=== PATIENT | female | born 1960 | race Caucasian/White ===

== ENCOUNTER 2017-08-18 21:17 | Emergency (ER) | payer OTHER ==
[~2017-08-18] VITALS: Ht 165.1 cm; Wt 76.2 kg
[~2017-08-18 21:17] MED LIST: ALBU4; ALBU90OI6 INH; ASPI81CH PO; ATOR80 PO; Aspirin EC81 MG PO; BUPR150ER PO; CLIN300 PO; CLOP75 PO; CRUTCH3 USE; CYAN1000I; CYAN1000I IM; CYCL10 PO; DULO60 PO; ESCI20; ESTR1; FAMO20 PO; FOLI1 PO; HYDACE5 PO; HYDACE5325 PO; IBUP400 PO; IBUP800 PO; LIDO2TG30; LIDO5TO TOP; LISI5 PO; MELA3; METO25ER PO; MIRALAX17 GM PO; NITR.4SL SL; PANT40 PO; PROACE100; RXHYDACE PO; RXOXYACE PO; TICA90TA; TUMS ULTRA ST1177 MG PO
[2017-08-18 22:07] LABS: Influenza A Negative (NEGATIVE); Influenza B Negative (NEGATIVE)
[2017-08-18 22:30] LABS: BASOPHILS ABSOLUTE AUTO 0.04 K/mm3 (0.00-0.23); BASOPHILS PERCENT AUTO 1 % (0-2); EOSINOPHILS ABSOLUTE AUTO 0.08 K/mm3 (0.00-0.68); EOSINOPHILS PERCENT AUTO 1 % (0-6); Hematocrit 37.8 % (33.0-51.0); Hemoglobin 12.6 g/dL (11.5-16.0); IMMATURE GRAN ABSOLUTE AUTO 0.01 K/mm3 (0.00-0.10); IMMATURE GRAN PERCENT AUTO 0 % (0-1); LYMPHOCYTES ABSOLUTE AUTO 2.75 K/mm3 (0.84-5.20); LYMPHOCYTES PERCENT AUTO 37 % (21-46); MONOCYTES ABSOLUTE AUTO 0.44 K/mm3 (0.16-1.47); MONOCYTES PERCENT AUTO 6 % (4-13); Mean Corpuscular HGB 32.5 pg (26.0-34.0); Mean Corpuscular HGB Conc 33.3 g/dL (31.5-36.5); Mean Corpuscular Volume 97 fL (80-100); Mean Platelet Volume 11.1 fL (9.1-12.4); NEUTROPHILS ABSOLUTE AUTO 4.13 K/mm3 (1.96-9.15); NEUTROPHILS PERCENT AUTO 56 % (41-73); Platelet Count 292 K/mm3 (150-400); RDW Coefficient Variation 12.5 % (11.7-14.2); RDW Standard Deviation 44.9 fL (35.1-46.3); Red Blood Cell Count 3.88 M/mm3 (3.80-5.20); White Blood Cell Count 7.45 K/mm3 (4.00-11.30)
[2017-08-18 22:53] LABS: Alanine Aminotransfer (ALT/SGP 19 U/L (12-78); Albumin, Blood 3.1 g/dL (3.4-5.0); Albumin/Globulin Ratio 0.7 (0.8-1.8); Alk Phos 98 U/L (50-136); Anion Gap 8 mmol/L (6-16); Aspartate Aminotrans (AST/SGOT 13 U/L (12-37); Bilirubin, Total 0.3 mg/dL (0.1-1.0); Blood Urea Nitrogen 6 mg/dL (8-24); Bun/Creatinine Ratio 8.3 (12.0-20.0); CO2, Blood 23 mmol/L (21-32); Calcium, Blood 8.6 mg/dL (8.5-10.1); Chloride, Blood 112 mmol/L (98-108); Creatinine, Blood 0.73 mg/dL (0.40-1.00); Globulin, Blood 4.3 g/dL (2.2-4.0); Glomerular Filtration Rate >60 (60-); Glucose, Blood 82 mg/dL (70-99); Potassium, Blood 3.7 mmol/L (3.5-5.5); Sodium, Blood 143 mmol/L (136-145); Total Protein, Blood 7.4 g/dL (6.4-8.2); Troponin I <0.015 ng/mL (0.000-0.040)
[2017-08-18] MEDS ORDERED: Augmentin 875-1 EACH PO (23:16)
== END 2017-08-18 23:45 | disposition home or self-care (01) ==
LOC: ER 21:17
PROVIDERS: Emergency Medicine
DX: J32.9 Chronic sinusitis, unspecified (principal); J45.909 Unspecified asthma, uncomplicated; F17.210 Nicotine dependence, cigarettes, uncomplicated; Z88.1 Allergy status to other antibiotic agents; Z91.012 Allergy to eggs; Z91.018 Allergy to other foods; Z88.5 Allergy status to narcotic agent; Z79.899 Other long term (current) drug therapy; Z79.01 Long term (current) use of anticoagulants; Z95.5 Presence of coronary angioplasty implant and graft; Z90.710 Acquired absence of both cervix and uterus; Z90.49 Acquired absence of other specified parts of digestive tract
CPT/HCPCS: 36415; 71046; 80053; 84484; 85025; 87804; 93005; 93010; 99283

== ENCOUNTER 2017-10-08 07:36 | Day surgery (SDC) | payer OTHER ==
[~2017-10-08 07:36] MED LIST changes: +Augmentin 875-1 EACH PO
== END 2017-10-08 23:06 | disposition home or self-care (01) ==
LOC: ORSCMMR 07:36
PROVIDERS: Internal Medicine Gastroenterology
PROC: 0DBN8ZX Excision of Sigmoid Colon, Via Natural or Artificial Opening Endoscopic, Diagnostic (ICD-10-PCS; principal; 2017-10-08 09:00)
PROC: 0DBL8ZX Excision of Transverse Colon, Via Natural or Artificial Opening Endoscopic, Diagnostic (ICD-10-PCS; principal; 2017-10-08 09:00)
PROC: 0DBM8ZX Excision of Descending Colon, Via Natural or Artificial Opening Endoscopic, Diagnostic (ICD-10-PCS; principal; 2017-10-08 09:00)
DX: Z12.11 Encounter for screening for malignant neoplasm of colon (principal); D12.4 Benign neoplasm of descending colon; D12.3 Benign neoplasm of transverse colon; D12.5 Benign neoplasm of sigmoid colon; K57.30 Diverticulosis of large intestine without perforation or abscess without bleeding; I25.10 Atherosclerotic heart disease of native coronary artery without angina pectoris; Z86.010 Personal history of colon polyps; F17.210 Nicotine dependence, cigarettes, uncomplicated; Z79.01 Long term (current) use of anticoagulants; Z79.82 Long term (current) use of aspirin; Z79.899 Other long term (current) drug therapy
CPT/HCPCS: 88305; J7120

== ENCOUNTER 2018-08-18 13:06 | Emergency (ER) | payer OTHER ==
[~2018-08-18] VITALS: Ht 165.1 cm; Wt 68.0 kg
[2018-08-18] MEDS ORDERED: PANT40 PO (13:23)
[2018-08-18] MEDS ORDERED: DICLOFENAC SOD100 G1 TOP (14:07)
== END 2018-08-18 14:10 | disposition home or self-care (01) ==
LOC: ER 13:06
DX: M79.81 Nontraumatic hematoma of soft tissue (principal); Z88.1 Allergy status to other antibiotic agents; Z88.8 Allergy status to other drugs, medicaments and biological substances; Z88.5 Allergy status to narcotic agent; Z91.012 Allergy to eggs; Z91.018 Allergy to other foods; Z79.899 Other long term (current) drug therapy; Z79.82 Long term (current) use of aspirin; J45.909 Unspecified asthma, uncomplicated; F17.210 Nicotine dependence, cigarettes, uncomplicated
CPT/HCPCS: 73630; 99283-25

== ENCOUNTER 2019-01-25 11:19 | Emergency (ER) | payer OTHER ==
[~2019-01-25] VITALS: Ht 165.1 cm; Wt 70.3 kg
[~2019-01-25 11:19] MED LIST changes: +DICLOFENAC SOD100 G1 TOP
[2019-01-25] MEDS ORDERED: Crutch1 EACH MISC (13:21)
[2019-01-25] MEDS ORDERED: Percocet 5-3251 EACH PO (13:22)
== END 2019-01-25 13:32 | disposition home or self-care (01) ==
LOC: ER 11:19
DX: S89.91XA Unspecified injury of right lower leg, initial encounter (principal); S90.511A Abrasion, right ankle, initial encounter; X50.9XXA Other and unspecified overexertion or strenuous movements or postures, initial encounter; Z88.1 Allergy status to other antibiotic agents; Z91.012 Allergy to eggs; Z91.018 Allergy to other foods; F17.210 Nicotine dependence, cigarettes, uncomplicated
CPT/HCPCS: 29505; 73562-RT; 99283-25

== ENCOUNTER 2019-05-06 14:56 | Observation (INO) | payer OTHER ==
[~2019-05-06] VITALS: Ht 165.1 cm; Wt 76.1 kg
[~2019-05-06 14:56] MED LIST changes: +Crutch1 EACH MISC; +Percocet 5-3251 EACH PO
[2019-05-06 16:01] LABS: BASOPHILS ABSOLUTE AUTO 0.06 K/mm3 (0.00-0.23); BASOPHILS PERCENT AUTO 1 % (0-2); EOSINOPHILS ABSOLUTE AUTO 0.11 K/mm3 (0.00-0.68); EOSINOPHILS PERCENT AUTO 1 % (0-6); Hematocrit 41.7 % (33.0-51.0); Hemoglobin 14.5 g/dL (11.5-16.0); IMMATURE GRAN ABSOLUTE AUTO 0.03 K/mm3 (0.00-0.10); IMMATURE GRAN PERCENT AUTO 0 % (0-1); LYMPHOCYTES ABSOLUTE AUTO 3.53 K/mm3 (0.84-5.20); LYMPHOCYTES PERCENT AUTO 35 % (21-46); MONOCYTES ABSOLUTE AUTO 0.76 K/mm3 (0.16-1.47); MONOCYTES PERCENT AUTO 8 % (4-13); Mean Corpuscular HGB 34.1 pg (26.0-34.0); Mean Corpuscular HGB Conc 34.8 g/dL (31.5-36.5); Mean Corpuscular Volume 98 fL (80-100); Mean Platelet Volume 11.2 fL (9.1-12.4); NEUTROPHILS ABSOLUTE AUTO 5.48 K/mm3 (1.96-9.15); NEUTROPHILS PERCENT AUTO 55 % (41-73); Platelet Count 281 K/mm3 (150-400); RDW Coefficient Variation 13.1 % (11.7-14.2); RDW Standard Deviation 47.2 fL (35.1-46.3); Red Blood Cell Count 4.25 M/mm3 (3.80-5.20); White Blood Cell Count 9.97 K/mm3 (4.00-11.30)
[2019-05-06 16:25] LABS: Alanine Aminotransfer (ALT/SGP 31 U/L (12-78); Albumin, Blood 3.3 g/dL (3.4-5.0); Albumin/Globulin Ratio 0.8 (0.8-1.8); Alk Phos 97 U/L (50-136); Anion Gap 8 mmol/L (6-16); Aspartate Aminotrans (AST/SGOT 27 U/L (12-37); Bilirubin, Total 0.4 mg/dL (0.1-1.0); Blood Urea Nitrogen 10 mg/dL (8-24); Bun/Creatinine Ratio 13.1 (12.0-20.0); CO2, Blood 18 mmol/L (21-32); Calcium, Blood 9.1 mg/dL (8.5-10.1); Chloride, Blood 112 mmol/L (98-108); Creatinine, Blood 0.76 mg/dL (0.40-1.00); Globulin, Blood 3.9 g/dL (2.2-4.0); Glomerular Filtration Rate >60 (60-); Glucose, Blood 88 mg/dL (70-99); Potassium, Blood 4.2 mmol/L (3.5-5.5); Sodium, Blood 138 mmol/L (136-145); Total Protein, Blood 7.2 g/dL (6.4-8.2); Troponin I <0.015 ng/mL (0.000-0.040)
[2019-05-06] MEDS ORDERED: Aspirin EC81 MG PO (16:52)
[2019-05-06] MEDS ORDERED: CLOP75 PO (18:40)
[2019-05-06] MEDS ORDERED: ATOR40TA PO (18:41)
[2019-05-06] MEDS ORDERED: LISI5 PO (18:41)
[2019-05-06] MEDS ORDERED: PANT40 PO (18:42)
--- NOTE | 2019-05-07 05:38 | NUR ---
Shift Summary Patient slept well overnight. She denies chest pain at rest. She has been NPO since approximately midnight.
[2019-05-07 09:05] LABS: Cholesterol 309 mg/dL (50-200); HDL Cholesterol 31 mg/dL (>39); LDL/HDL RATIO 6.8; Low Density Lipoprotein Chol 211 mg/dL (0-110); Triglycerides 337 mg/dL (30-160); Troponin I <0.015 ng/mL (0.000-0.040); Very Low Density Lipoprot Chol 67 mg/dL (6-32)
--- NOTE | 2019-05-07 16:08 | NUR ---
SHIFT SUMMARY NO ACUTE CHANGES. PATIENT DENIES PAIN, NAUSEA, AND SHORTNESS OF BREATH. PATIENT UP INDEPENDENT IN ROOM. AT BEDSIDE. FIRST PART OF STRESS TEST SCHEDULED FOR THIS EVENING. CALL LIGHT IN REACH.
--- NOTE | 2019-05-08 05:47 | NUR ---
Shift Summary Patient slept well overnight. She offered no complaints of cp. She has been NPO since MO in anticipation of stress test this AM.
[2019-05-08] MEDS ORDERED: METO25ER PO (11:40)
[2019-05-08] MEDS ORDERED: NICO2 PO (12:12)
--- NOTE | 2019-05-08 13:24 | NUR ---
Pt. in bed resting and ntalking with her spoouse in the room on visit pt. reports doing well encouraged pt. and prayed for her.
--- NOTE | 2019-05-08 18:37 | NUR ---
DISCHARGE DISCHARGE MEDICATIONS AND INSTRUCTIONS EXPLAINED TO PATIENT. PATIENT STATED UNDERSTANDING. [facility] CLAMMER TO CALL PATIENT AT HOME TO SET UP NEW PCP APPOINTMENT. IV REMOVED WITHOUT DIFFICULTY. BELONGINGS WITH PATIENT. PATIENT AMBULATE TO PRIVATE VEHICLE.
== END 2019-05-08 18:36 | disposition home or self-care (01) ==
LOC: ER 14:56 → MEDS 14:57 → ENPENDDIS 05-11 09:58
PROVIDERS: Emergency Medicine; ADMIT Internal Medicine
DX: R07.9 Chest pain, unspecified (principal); I10 Essential (primary) hypertension; E78.5 Hyperlipidemia, unspecified; M79.7 Fibromyalgia; J45.909 Unspecified asthma, uncomplicated; F17.210 Nicotine dependence, cigarettes, uncomplicated; I25.10 Atherosclerotic heart disease of native coronary artery without angina pectoris; K44.9 Diaphragmatic hernia without obstruction or gangrene; Z88.1 Allergy status to other antibiotic agents; Z88.5 Allergy status to narcotic agent; Z91.012 Allergy to eggs; Z91.010 Allergy to peanuts; Z79.82 Long term (current) use of aspirin; Z95.5 Presence of coronary angioplasty implant and graft
CPT/HCPCS: 36415; 71045; 78452; 80053; 80061; 84484; 85025; 93005; 93010; 93017; 99285-25; A9500; J0706; J1650; J2785

== ENCOUNTER 2021-11-22 09:12 | Day surgery (SDC) | payer OTHER ==
[~2021-11-22] VITALS: Ht 165.1 cm; Wt 96.7 kg
[~2021-11-22 09:12] MED LIST changes: +ATOR40TA PO; +NICO2 PO
[2021-11-22] MEDS ORDERED: ISOMON20 (10:46)
[2021-11-22] MEDS ORDERED: PREG25 (10:47)
== END 2021-11-22 12:30 | disposition home or self-care (01) ==
LOC: ORSCSDS 09:12
PROVIDERS: Internal Medicine Gastroenterology
PROC: 0DBH8ZX Excision of Cecum, Via Natural or Artificial Opening Endoscopic, Diagnostic (ICD-10-PCS; principal; 2021-11-22 10:45)
PROC: 0DBL8ZX Excision of Transverse Colon, Via Natural or Artificial Opening Endoscopic, Diagnostic (ICD-10-PCS; principal; 2021-11-22 10:45)
PROC: 0DBK8ZX Excision of Ascending Colon, Via Natural or Artificial Opening Endoscopic, Diagnostic (ICD-10-PCS; principal; 2021-11-22 10:45)
DX: Z12.11 Encounter for screening for malignant neoplasm of colon (principal); Z86.010 Personal history of colon polyps; D12.3 Benign neoplasm of transverse colon; D12.2 Benign neoplasm of ascending colon; K55.20 Angiodysplasia of colon without hemorrhage; K64.8 Other hemorrhoids; K57.30 Diverticulosis of large intestine without perforation or abscess without bleeding; I25.10 Atherosclerotic heart disease of native coronary artery without angina pectoris; I10 Essential (primary) hypertension; J45.909 Unspecified asthma, uncomplicated; G47.33 Obstructive sleep apnea (adult) (pediatric); K21.9 Gastro-esophageal reflux disease without esophagitis; E66.9 Obesity, unspecified; Z68.34 Body mass index [BMI] 34.0-34.9, adult; Z79.82 Long term (current) use of aspirin; Z79.899 Other long term (current) drug therapy
CPT/HCPCS: 88305; J2704; J7120

== ENCOUNTER 2022-10-26 16:50 | Observation (INO) | payer OTHER ==
[~2022-10-26] VITALS: Ht 165.1 cm; Wt 98.0 kg
[~2022-10-26 16:50] MED LIST changes: +ISOMON20 PO; +PREG25 PO
[2022-10-26 17:27] LABS: BASOPHILS ABSOLUTE AUTO 0.05 K/mm3 (0.00-0.23); BASOPHILS PERCENT AUTO 1 % (0-2); EOSINOPHILS ABSOLUTE AUTO 0.06 K/mm3 (0.00-0.68); EOSINOPHILS PERCENT AUTO 1 % (0-6); Hematocrit 43.2 % (33.0-51.0); Hemoglobin 14.9 g/dL (11.5-16.0); IMMATURE GRAN ABSOLUTE AUTO 0.03 K/mm3 (0.00-0.10); IMMATURE GRAN PERCENT AUTO 0 % (0-1); LYMPHOCYTES ABSOLUTE AUTO 4.57 K/mm3 (0.84-5.20); LYMPHOCYTES PERCENT AUTO 43 % (21-46); MONOCYTES ABSOLUTE AUTO 0.69 K/mm3 (0.16-1.47); MONOCYTES PERCENT AUTO 6 % (4-13); Mean Corpuscular HGB 33.3 pg (26.0-34.0); Mean Corpuscular HGB Conc 34.5 g/dL (31.5-36.5); Mean Corpuscular Volume 96 fL (80-100); Mean Platelet Volume 11.2 fL (9.1-12.4); NEUTROPHILS ABSOLUTE AUTO 5.36 K/mm3 (1.96-9.15); NEUTROPHILS PERCENT AUTO 50 % (41-73); Platelet Count 356 K/mm3 (150-400); RDW Coefficient Variation 12.5 % (11.7-14.2); RDW Standard Deviation 44.7 fL (35.1-46.3); Red Blood Cell Count 4.48 M/mm3 (3.80-5.20); White Blood Cell Count 10.76 K/mm3 (4.00-11.30)
[2022-10-26 17:40] LABS: Albumin, Blood 3.8 g/dL (3.4-5.0); Bilirubin, Total 0.3 mg/dL (0.1-1.0); Bun/Creatinine Ratio 7.4 (12.0-20.0); Calcium, Blood 9.5 mg/dL (8.5-10.1); Creatinine, Blood 0.95 mg/dL (0.40-1.00); Globulin, Blood 3.9 g/dL (2.2-4.0); Potassium, Blood 3.4 mmol/L (3.5-5.5); Total Protein, Blood 7.7 g/dL (6.4-8.2)
--- NOTE | 2022-10-26 21:24 | NUR ---
report received from Linda Grullon RN in ER.
[2022-10-26] MEDS ORDERED: PREG150 PO (21:34)
[2022-10-26] MEDS ORDERED: PRAM.5 PO (21:35)
[2022-10-26 21:57] VITALS: BP 110/65
[2022-10-27 03:52] VITALS: BP 151/88
[2022-10-27 04:41] VITALS: BP 124/82
[2022-10-27 04:43] LABS: BASOPHILS ABSOLUTE AUTO 0.07 K/mm3 (0.00-0.23); BASOPHILS PERCENT AUTO 1 % (0-2); EOSINOPHILS ABSOLUTE AUTO 0.09 K/mm3 (0.00-0.68); EOSINOPHILS PERCENT AUTO 1 % (0-6); Hematocrit 42.4 % (33.0-51.0); Hemoglobin 14.6 g/dL (11.5-16.0); IMMATURE GRAN ABSOLUTE AUTO 0.03 K/mm3 (0.00-0.10); IMMATURE GRAN PERCENT AUTO 0 % (0-1); LYMPHOCYTES ABSOLUTE AUTO 5.23 K/mm3 (0.84-5.20); LYMPHOCYTES PERCENT AUTO 50 % (21-46); MONOCYTES ABSOLUTE AUTO 0.69 K/mm3 (0.16-1.47); MONOCYTES PERCENT AUTO 7 % (4-13); Mean Corpuscular HGB 33.3 pg (26.0-34.0); Mean Corpuscular HGB Conc 34.4 g/dL (31.5-36.5); Mean Corpuscular Volume 97 fL (80-100); NEUTROPHILS ABSOLUTE AUTO 4.38 K/mm3 (1.96-9.15); NEUTROPHILS PERCENT AUTO 42 % (41-73); Platelet Count 338 K/mm3 (150-400); RDW Coefficient Variation 12.7 % (11.7-14.2); RDW Standard Deviation 45.1 fL (35.1-46.3); Red Blood Cell Count 4.39 M/mm3 (3.80-5.20); White Blood Cell Count 10.49 K/mm3 (4.00-11.30)
--- NOTE | 2022-10-27 05:00 | NUR ---
AT 0415, PATIENT REPORTED 8/10 PAIN THAT WOKE HER FROM SLEEP. IT RADIATED FROM MID STERNUM THROUGH TO HER BACK, AND TO BOTH SIDES OF HER JAW. SHE APPEARED EXTREMELY ANXIOUS AND FRIGHTENED. STAT EKG OBTAINED AND SENT TO NIGHT HOSPITALIST TO COMPARE TO EKG PERFORMED IN ER. PATIENT TOO ANXIOUS TO WEAR BIPAP, AND REMOVED IT PRIOR TO THIS RN COMING INTO THE ROOM. 3L 02 PLACED FOR COMFORT THE PATIENT 02 MONITOR WAS ALARMING WITH SATS LESS THANA 90%. 50MCG FENTANYL GIVEN PER ORDER WHICH REDUCED HER PAIN FROM AND 8 TO A 3/10. PATIENT BEGAN TO REST COMFORTABLY. SHORTLY AFTER THIS EPISODE, LAB WAS IN TO DRAW HER TROPONIN WHICH HAD DECREASED FROM 218 TO 160. MD NOT INFORMED OF NEWEST TROPONIN IT HAD SIGNIFICANTLY DECREASED. TELE: SB SR 50'S TO 70'S WITH OCCASIONAL PVC'S. QTc ELONGATED FROM 434 TO 466 WITH THE LATEST EPISODE OF CHEST PAIN WAS DECREASING
[2022-10-27 05:03] LABS: Albumin, Blood 3.6 g/dL (3.4-5.0); Bilirubin, Total 0.3 mg/dL (0.1-1.0); Bun/Creatinine Ratio 8.9 (12.0-20.0); Calcium, Blood 9.4 mg/dL (8.5-10.1); Creatinine, Blood 0.9 mg/dL (0.40-1.00); Globulin, Blood 3.7 g/dL (2.2-4.0); Total Protein, Blood 7.3 g/dL (6.4-8.2)
[2022-10-27 07:32] VITALS: BP 109/56
--- NOTE | 2022-10-27 19:43 | NUR ---
SHIFT SUMMARY [facility] STARTED TODAY, TO FINISH STUDY TOMORROW. PTN TO BE NPO AFTER MIDNIGHT, WATER OKAY. CRITICAL TROPONIN REPORTED TO CHARGE NURSE AT 145, CALL FROM [facility]ES[facility] IN LAB, TRENDING DOWN AND MD NOT NOTIFIED. NO OXYGEN USED THIS SHIFT. PTN HAD NO C/O OF SOB. NO C/O OF PAIN. PRESENT IN ROOM THIS SHIFT. TELEMETRY REPORT SINUS SUSIE, HR 56. CONTINUE TO MONITOR.
[2022-10-27 20:30] VITALS: BP 114/71
[2022-10-28 03:39] VITALS: BP 124/65
--- NOTE | 2022-10-28 07:18 | NUR ---
NO EPISODES OF CHEST PAIN OR PRESSURE OVERNIGHT. DENISA SLEPT FROM AROUND 2100 UNTIL 0700 WAKING ONLY TO USE THE BATHROOM. SHE WAS ABLE TO WEAR HER BIPAP ALL NIGHT WITHOUT DIFFICULTY WITH SATURATIONS NEVER DROPPING BELOW 92%. NPO EXCEPT WATER SINCE BEFORE 2400 FOR 2ND PART OF STRESS TEST.
[2022-10-28 07:42] VITALS: BP 111/61
--- NOTE | 2022-10-28 15:59 | NUR ---
Patient doing well today, completed stress test today. MD assessed patient at bedside. Plan is to discharge home, after stress test resulted. MD recommended patient f/u with cardiology & PCP. Reviewed discharge teaching, patient verbalized understanding. Removed IVs, site WNL. Patient left medical floor at 1545.
== END 2022-10-28 15:39 | disposition home or self-care (01) ==
LOC: ER 16:50 → MEDS 16:51
PROVIDERS: Student in an Organized Health Care Education/Training Program; ADMIT Student in an Organized Health Care Education/Training Program
DX: R07.89 Other chest pain (principal); R68.84 Jaw pain; I25.10 Atherosclerotic heart disease of native coronary artery without angina pectoris; Z95.5 Presence of coronary angioplasty implant and graft; E78.5 Hyperlipidemia, unspecified; I10 Essential (primary) hypertension; F17.200 Nicotine dependence, unspecified, uncomplicated; E66.9 Obesity, unspecified; E87.6 Hypokalemia; Z68.35 Body mass index [BMI] 35.0-35.9, adult; I25.2 Old myocardial infarction
CPT/HCPCS: 36415; 71046; 78452; 80053; 83880; 84484; 85025; 93005; 93010; 93017; 94660; 94762; 96372; 96375; 99285-25; A9270; A9500; G0378; J1650; J2785; J3010

== ENCOUNTER → 2023-05-01 | Outpatient (CLI) | payer OTHER ==
[~2023-05-01] MED LIST changes: +PRAM.5 PO; +PREG150 PO
[2023-05-01 17:38] LABS: Albumin, Blood 3.5 g/dL (3.4-5.0); Bilirubin, Total 0.4 mg/dL (0.1-1.0); Globulin, Blood 3.5 g/dL (2.2-4.0); Potassium, Blood 4.6 mmol/L (3.5-5.5); Thyroid Stimulating Hormone 3.99 uIU/mL (0.360-4.800)
== END | disposition home or self-care (01) ==
LOC: LAB 16:41 → LAB SHORT 16:41
PROVIDERS: Family Medicine
DX: G25.0 Essential tremor (principal)
CPT/HCPCS: 80053; 84443

== ENCOUNTER → 2023-07-19 | Outpatient (CLI) | payer OTHER ==
[2023-07-19 19:03] LABS: BASOPHILS ABSOLUTE AUTO 0.09 K/mm3 (0.00-0.23); BASOPHILS PERCENT AUTO 1 % (0-2); EOSINOPHILS ABSOLUTE AUTO 0.24 K/mm3 (0.00-0.68); EOSINOPHILS PERCENT AUTO 3 % (0-6); Hematocrit 42.3 % (33.0-51.0); Hemoglobin 14.6 g/dL (11.5-16.0); IMMATURE GRAN ABSOLUTE AUTO 0.01 K/mm3 (0.00-0.10); IMMATURE GRAN PERCENT AUTO 0 % (0-1); LYMPHOCYTES PERCENT AUTO 43 % (21-46); MONOCYTES ABSOLUTE AUTO 0.66 K/mm3 (0.16-1.47); MONOCYTES PERCENT AUTO 8 % (4-13); Mean Corpuscular HGB 34.2 pg (26.0-34.0); Mean Corpuscular HGB Conc 34.5 g/dL (31.5-36.5); Mean Corpuscular Volume 99 fL (80-100); Mean Platelet Volume 11.9 fL (9.1-12.4); NEUTROPHILS ABSOLUTE AUTO 3.72 K/mm3 (1.96-9.15); NEUTROPHILS PERCENT AUTO 45 % (41-73); Platelet Count 290 K/mm3 (150-400); RDW Coefficient Variation 13.1 % (11.7-14.2); Red Blood Cell Count 4.27 M/mm3 (3.80-5.20); White Blood Cell Count 8.32 K/mm3 (4.00-11.30)
[2023-07-21 10:04] LABS: CALCIUM, SERUM 9.4 mg/dL (8.7-10.3); CREATININE, SERUM 0.91 mg/dL (0.57-1.00); POTASSIUM, SERUM 4.9 mmol/L (3.5-5.2)
== END | disposition home or self-care (01) ==
LOC: LAB SHORT 12:18 → LAB 12:18
PROVIDERS: Family Medicine
DX: K57.91 Diverticulosis of intestine, part unspecified, without perforation or abscess with bleeding (principal)
CPT/HCPCS: 80048; 85025